=== PATIENT | female | born 1960 | race Caucasian/White ===

== ENCOUNTER 2017-09-27 07:11 | Emergency (ER) | payer SELFPAY ==
[~2017-09-27 07:11] MED LIST: Sodium Chloride 0.9% 1,000 ML BAG ONE
[2017-09-27] MEDS ORDERED: Ketorolac Tromethamine 30 MG/ML VIAL ONE (07:40)
[2017-09-27] MEDS ORDERED: diphenhydrAMINE 50 MG/ML VIAL ONE (07:40)
[2017-09-27] MEDS ORDERED: Metoclopramide HCl 10 MG/2 ML VIAL ONE (07:41)
[2017-09-27 07:57] LABS: Hemoglobin 13.2 g/dL (12.0-16.0); Mean Corpuscular Hemoglobin 29.6 pg (27.0-31.0); Mean Corpuscular Volume 89.3 fL (78.0-98.0); Red Blood Cell (RBC) Count 4.47 mill/uL (4.20-5.40); White Blood Cell (WBC) Count 7.1 thou/uL (4.8-10.8)
[2017-09-27 07:58] LABS: #Basophils 0.1 thou/uL (0.0-0.2); #Eosinphils 0.1 thou/uL (0.0-0.7); #Monocytes 0.5 thou/uL (0.11-0.59); #Neutrophils 4.6 thou/uL (1.40-6.50); %Basophils 1.1 % (0.0-1.0); %Eosinophils 1.2 % (0.0-10.0); %Lymphocytes 24.4 % (21.0-51.0); %Monocytes 7.7 % (0.0-10.0); %Neutrophils 65.6 % (42.0-75.0); CKMB 0.6 ng/mL (0-6.6); MDiff Complete? YES; Manual Diff?? NO; Mean Corpuscular HGB CONC 33.2 g/dL (32.0-36.0); Mean Platelet Volume 7.9 fL (7.4-10.4); Platelet Count 229 thou/uL (130-400); RBC Distribution Width 11.7 % (11.5-14.5); Troponin I Less than 0.010 ng/mL (< 0.028)
[2017-09-27 08:03] LABS: ALT (SGPT) 19 U/L (8-55); AST (SGOT) 17 U/L (5-34); Albumin 4.1 g/dL (3.5-5.0); Alkaline Phosphatase 74 U/L (40-150); Anion Gap 14 mmol/L (10-20); BUN (Urea Nitrogen) 10 mg/dL (9.8-20.1); Bilirubin, Total 0.5 mg/dL (0.2-1.2); Calc. Creatinine Clearance 0 mL/min (70-130); Calcium 9.7 mg/dL (7.8-10.44); Carbon Dioxide 23 mmol/L (22-29); Chloride 108 mmol/L (98-107); Estimated GFR-MDRD 64; Globulin 3.1 g/dL (2.4-3.5); Glucose 108 mg/dL (70-105); Potassium 4.2 mmol/L (3.5-5.1); Protein, Total 7.2 g/dL (6.0-8.3); Sodium 141 mmol/L (136-145)
[2017-09-27] MEDS ORDERED: Famotidine In NaCl 20 mg/50 ml Premix Bag ONE (09:23)
[2017-09-27] MEDS ORDERED: Mag-Al Plus 1200 MG/1200 MG/120 MG/30 ML UDCUP ONE (09:23)
[2017-09-27] MEDS ORDERED: Lidocaine Viscous Sol 2% 15 ml UD Cup ONE (09:23)
== END 2017-09-27 11:10 | disposition home or self-care (01) ==
LOC: MADERS 07:11
DX: R51 Headache (principal)
CPT/HCPCS: 36415; 80053; 82553; 84484; 85025; 93005; 96361; 96374; 96375; J1200; J1885; J2765; J7050